=== PATIENT | male | born 1975 | race Caucasian/White ===

== ENCOUNTER 2020-11-17 21:45 | Inpatient (IN) | payer OTHER ==
[~2020-11-17] VITALS: Ht 175.3 cm; Wt 129.9 kg
[~2020-11-17 21:45] MED LIST: CYCLOBENZAPRINE5 MG PO; HYDROCODONE-AP1 EAC6 PO; NAPROSYN500 MG PO; PERCOCET 7.5-31 EACH PO; VALIUM5 MG PO
[2020-11-17 22:00] VITALS: BP 130/75
[2020-11-17 22:34] LABS: URINE BILIRUBIN NEGATIVE (Negative); URINE BLOOD 1+ (Negative); URINE CLARITY CLEAR; URINE COLOR YELLOW; URINE GLUCOSE-RANDOM NEGATIVE (Negative); URINE KETONES TRACE (Negative); URINE LEUKOCYTES-REFLEX NEGATIVE (Negative); URINE NITRITE-REFLEX NEGATIVE (Negative); URINE PROTEIN 2+ (Negative)
[2020-11-17 22:58] LABS: MUCUS 4-6 Moderate strn/LPF (None Seen); SQUAMOUS NONE SEEN /LPF (0-3)
[2020-11-17 22:59] LABS: BACTERIA-REFLEX 1-9 Few /HPF (None Seen); CRYSTALS None Seen /LPF (None Seen); URINE RBC 3-10 Few /HPF (0-2); URINE WBC-REFLEX 0-5 Rare /HPF (0-5)
[2020-11-17 23:00] LABS: HYALINE CASTS 0-3 Few /LPF (None Seen)
[2020-11-17 23:17] LABS: ABSOLUTE LYMPHOCYTES 0.8 thou/uL (0.8-5.3); ABSOLUTE MONOCYTES 0.3 thou/uL (0.0-1.2); ABSOLUTE NEUTROPHILS 4.7 thou/uL (1.6-8.1); BASOPHILS 0.5 %; HEMOGLOBIN 14.6 gm/dL (14.0-18.0); LYMPHOCYTES 13.2 %; MCHC 34.8 g/dL (28.0-37.0); MCV 86.1 fL (80.0-100.0); MONOCYTES 5.5 %; MPV 8.3 fl. (7.2-11.1); NUCLEATED RBCS 0 /100WBC; PLATELET COUNT* 241 thou/uL (150-400); POLYS 80.8 %; RBC 4.88 mil/uL (4.50-6.00); RDW-CV 12.9 % (10.5-14.5); WBC 5.9 thou/uL (4.0-11.0)
[2020-11-17 23:20] LABS: CALCIUM 8.7 mg/dL (8.5-10.1); CREATININE 1.4 mg/dL (0.6-1.3); POTASSIUM 3.7 mmol/L (3.5-5.1)
[2020-11-17 23:25] LABS: PROTIME 10.5 Seconds (9.20-11.50)
[2020-11-17 23:35] LABS: ALBUMIN 3.4 g/dL (3.4-5.0); MAGNESIUM 2.3 mg/dL (1.8-2.4); TOTAL BILIRUBIN 0.5 mg/dL (<0.1-1.0); TOTAL PROTEIN 7.5 g/dL (6.4-8.2)
[2020-11-18] VITALS (7 sets, daily range): BP systolic 112–136; BP diastolic 51–85
--- NOTE | 2020-11-18 09:42 | EKG ---
[place] [address] ELECTROCARDIOGRAM REPORT Name: JIMMY WEST Room: [address] ADM IN M.R.#: [id number] Admission: 11/17/20 Attend Phys: Clay Hawthorne Discharge: Date of : 77 Date of Service: 11/17/202305 Report #: [id number] THIS REPORT FOR: //name// [facility] ED Test Date: 2020-11-17 Test Time: 23:06:52 Pat Name: JIMMY WEST Department: Room: [facility] Gender: M [employer] Administrator: [facility] : 1975 Requested By: Xiomara Lim Order Number: [id number] MD: Rivas Blood Measurements Intervals [place] Rate: 105 P: 48 MT: 130 QRS: 53 QRSD: 93 T: -19 QT: 332 QTc: 439 Interpretive Statements Sinus tachycardia Borderline repolarization abnormality No previous ECG available for comparison Electronically Signed On 11-18-2020 9:42:24 [employer] by Rivas Blood [email or web address] <ELECTRONICALLY SIGNED> By: Rivas Blood MD, [facility] 11/18/20 0942 05 Rivas Blood MD, [facility] /EPI
[2020-11-18 11:57] LABS: HEMATOCRIT 42.1 % (42.0-52.0); HEMOGLOBIN 14.5 gm/dL (14.0-18.0); MCH 29.7 pg (26.0-34.0); MCHC 34.3 g/dL (28.0-37.0); MCV 86.6 fL (80.0-100.0); MPV 7.7 fl. (7.2-11.1); NUCLEATED RBCS 0 /100WBC; PLATELET COUNT* 240 thou/uL (150-400); RBC 4.86 mil/uL (4.50-6.00); RDW-CV 13.1 % (10.5-14.5); WBC 5.1 thou/uL (4.0-11.0)
[2020-11-18 12:11] LABS: ALBUMIN 3.1 g/dL (3.4-5.0); CALCIUM 8.7 mg/dL (8.5-10.1); CREATININE 1.3 mg/dL (0.6-1.3); POTASSIUM 3.8 mmol/L (3.5-5.1); TOTAL BILIRUBIN 0.4 mg/dL (<0.1-1.0); TOTAL PROTEIN 7.1 g/dL (6.4-8.2)
[2020-11-18 12:20] LABS: ABSOLUTE LYMPHOCYTES 0.3 thou/uL (0.8-5.3); ABSOLUTE MONOCYTES 0.2 thou/uL (0.0-1.2); ABSOLUTE NEUTROPHILS 4.6 thou/uL (1.6-8.1); PLATELET ESTIMATE ADEQUATE
[2020-11-19 05:12] VITALS: BP 129/84
[2020-11-19 05:33] LABS: HEMATOCRIT 38.1 % (42.0-52.0); HEMOGLOBIN 13.5 gm/dL (14.0-18.0); MCH 30.8 pg (26.0-34.0); MCHC 35.5 g/dL (28.0-37.0); MCV 86.6 fL (80.0-100.0); MPV 8.1 fl. (7.2-11.1); RBC 4.4 mil/uL (4.50-6.00); RDW-CV 13.3 % (10.5-14.5); WBC 7.6 thou/uL (4.0-11.0)
[2020-11-19 06:01] LABS: ALBUMIN 2.8 g/dL (3.4-5.0); CALCIUM 8.3 mg/dL (8.5-10.1); CREATININE 1.1 mg/dL (0.6-1.3); MAGNESIUM 2.3 mg/dL (1.8-2.4); POTASSIUM 4.3 mmol/L (3.5-5.1); TOTAL BILIRUBIN 0.5 mg/dL (<0.1-1.0); TOTAL PROTEIN 6.7 g/dL (6.4-8.2)
[2020-11-19 09:14] VITALS: BP 143/87
[2020-11-19 12:00] VITALS: BP 131/79
[2020-11-19 16:00] VITALS: BP 112/76
[2020-11-19 20:00] VITALS: BP 123/73
[2020-11-20] VITALS: BP 126/81; BP 127/83
[2020-11-20 04:02] VITALS: BP 140/79
[2020-11-20 08:40] LABS: HEMATOCRIT 38.8 % (42.0-52.0); HEMOGLOBIN 13.2 gm/dL (14.0-18.0); MCH 29.8 pg (26.0-34.0); MCHC 34.1 g/dL (28.0-37.0); MCV 87.3 fL (80.0-100.0); MPV 7.7 fl. (7.2-11.1); RBC 4.44 mil/uL (4.50-6.00); RDW-CV 13.5 % (10.5-14.5); WBC 5.8 thou/uL (4.0-11.0)
[2020-11-20 08:54] LABS: ALBUMIN 2.7 g/dL (3.4-5.0); CALCIUM 8.6 mg/dL (8.5-10.1); CREATININE 1.4 mg/dL (0.6-1.3); MAGNESIUM 2.4 mg/dL (1.8-2.4); POTASSIUM 3.9 mmol/L (3.5-5.1); TOTAL BILIRUBIN 0.4 mg/dL (<0.1-1.0); TOTAL PROTEIN 6.8 g/dL (6.4-8.2)
[2020-11-20 10:26] VITALS: BP 133/76
[2020-11-20 12:00] VITALS: BP 125/81
[2020-11-20 16:00] VITALS: BP 124/81
[2020-11-20 20:00] VITALS: BP 127/87
[2020-11-21 01:15] VITALS: BP 127/89
[2020-11-21 06:00] VITALS: BP 137/95
[2020-11-21 06:49] LABS: ALBUMIN 2.6 g/dL (3.4-5.0); CALCIUM 8.7 mg/dL (8.5-10.1); CREATININE 1.1 mg/dL (0.6-1.3); MAGNESIUM 2.6 mg/dL (1.8-2.4); POTASSIUM 4.4 mmol/L (3.5-5.1); TOTAL BILIRUBIN 0.4 mg/dL (<0.1-1.0); TOTAL PROTEIN 6.5 g/dL (6.4-8.2)
[2020-11-21 08:00] VITALS: BP 136/95
[2020-11-21 08:54] LABS: HEMATOCRIT 39.4 % (42.0-52.0); HEMOGLOBIN 13.2 gm/dL (14.0-18.0); MCH 29.3 pg (26.0-34.0); MCHC 33.5 g/dL (28.0-37.0); MCV 87.7 fL (80.0-100.0); MPV 7.5 fl. (7.2-11.1); RBC 4.49 mil/uL (4.50-6.00); RDW-CV 13.5 % (10.5-14.5); WBC 5.4 thou/uL (4.0-11.0)
[2020-11-21] MEDS ORDERED: BENZONATATE100 MG PO (10:10)
[2020-11-21] MEDS ORDERED: PREDNISONE 10 M10 MG PO (10:11)
[2020-11-21] MEDS ORDERED: ULTRAM 50MG TAB50 MG PO (10:13)
[2020-11-21 13:21] VITALS: BP 136/95
[2020-11-21 14:27] VITALS: BP 136/95
== END 2020-11-21 14:40 | disposition home or self-care (01) | DRG 177 ==
LOC: M.ERS 21:45 → M.ORTHSURG 23:37 → M.TBA-ER 23:37 → M.ORTHSURG 11-18 02:55
PROVIDERS: Emergency Medicine; Internal Medicine; ADMIT Internal Medicine; ATTEND Internal Medicine
PROC: XW033E5 Introduction of Remdesivir Anti-infective into Peripheral Vein, Percutaneous Approach, New Technology Group 5 (ICD-10-PCS; principal; 2020-11-19)
DX: U07.1 COVID-19 (principal); J96.01 Acute respiratory failure with hypoxia; J12.82 Pneumonia due to coronavirus disease 2019; E43 Unspecified severe protein-calorie malnutrition; N17.0 Acute kidney failure with tubular necrosis; Z68.41 Body mass index [BMI] 40.0-44.9, adult; E66.01 Morbid (severe) obesity due to excess calories; R79.89 Other specified abnormal findings of blood chemistry; E04.1 Nontoxic single thyroid nodule; Z79.899 Other long term (current) drug therapy; Z88.0 Allergy status to penicillin; Z88.8 Allergy status to other drugs, medicaments and biological substances; Z28.21 Immunization not carried out because of patient refusal